=== PATIENT | male | born 1965 | race Caucasian/White ===

== ENCOUNTER 2019-04-04 10:49 | Day surgery (SDC) | payer OTHER ==
[2019-04-03 14:34] VITALS: BMI 32.2
[2019-04-04] MEDS ORDERED: MIDAZOLAM HCL 2 MG/2 ML SINGLE DOSE VIAL ONE ×2 (12:45→12:52)
[2019-04-04] MEDS ORDERED: PROPOFOL 20 ML ONE (12:45)
[2019-04-04] MEDS ORDERED: CLINDAMYCIN 600 MG PREMIX BAG IVPB ONE (12:53)
[2019-04-04] MEDS ORDERED: LIDOCAINE HCL 1%, 10 MG/ML (20ML VIAL) INF ONE (13:09)
[2019-04-04] MEDS ORDERED: BUPIVACAINE HCL/PF 0.25% (2.5MG/ML) 10 ML VIAL IJ ONE (13:09)
[2019-04-04] MEDS ORDERED: BENZOIN TINCTURE SWABSTICK TP ONE (13:45)
[2019-04-04 17:18] VITALS: BP 138/80; PULSE 74; TEMP 97.8
--- NOTE | 2019-04-08 22:39 | PROC ---
Procedure Note Procedure: Date of service: 04/04/2019 Preoperative Diagnosis: Failed Back Surgery Syndrome, Lumbar Radiculopathy, Postoperative Diagnosis: Same Procedure Performed: 1) Insertion of spinal cord stimulator leads x 2 2) Fluoroscopic needle guidance 3) Initial programming of device Anesthesia: Local (2% Lidocaine )/MAC Anesthesiologist: Dr. Adrian Procedure: I discussed with the patient in detail about the risks, benefits and alternatives to treatment not only limited to infection, headache, numbness, weakness and injury to nerves, spinal cord, blood vessels and muscles. The patient understood, agreed and signed the written consent. The patient was positioned prone on the fluoroscopy table. The patient was prepped and draped in the usual sterile fashion using DuraPrep and a fenestrated drape. Routine vital sign monitors were applied and anesthesia was initiated. The patient remained conversant throughout the procedure. The area to be injected was determined using fluoroscopy. Local anesthetic was given by raising a skin wheal and going down to the hub of a 25-gauge 1.5-inch needle. The 25-gauge 3.5- inch needle was used to anesthetize down to just short of the ligamentum flavum to be entered. A 14-gauge Tuohy needle was then advanced to contact the right L1 -L2 level. It was walked off in a superior medial direction until it entered the epidural space using loss of resistance to saline and air. The high - frequency spinal cord stimulator lead was advanced through the Tuohy needle and directed to rest the tip at the T8. The same procedure was repeated in detail for the left side to insert a second lead within the epidural space to reside at T9 level. Lead position was confirmed both in AP and Lateral views under Fluoroscopy. The needles were withdrawn leaving the leads in place and were then secured to the patients skin using Stay-Fix adhesive bandages and Tegaderm. The patients back was cleaned. The patient was allowed to fully recover from anesthesia and taken to the recovery room in good position. The procedure was completed without complications and was tolerated well. The patient was monitored after the procedure. Stimulation programming and testing of the device was done in the recovery room by the device paper sales representative. The patient (or responsible constitution party) was given post-procedure and discharge instructions to follow at home. The patient was discharged in stable condition. A follow-up appointment was made. If there is any problem, call my office at or report to Emergency Room. Cheikh Peng M.D.
== END 2019-04-04 16:55 | disposition home or self-care (01) ==
LOC: JASU-SURG 10:49
PROVIDERS: ATTEND Physical Medicine & Rehabilitation
PROC: 4B01XVZ Measurement of Peripheral Nervous Stimulator, External Approach (ICD-10-PCS; 2019-04-04)
PROC: 00HU3MZ Insertion of Neurostimulator Lead into Spinal Canal, Percutaneous Approach (ICD-10-PCS; principal; 2019-04-04 12:00)
DX: M96.1 Postlaminectomy syndrome, not elsewhere classified (principal); M54.16 Radiculopathy, lumbar region
CPT/HCPCS: 63650; 95971; C1897; 76000-TC-FY